=== PATIENT | male | born 1990 | race Caucasian/White ===

== ENCOUNTER 2019-05-13 21:21 | Emergency (ER) | payer MEDICAID ==
[~2019-05-13] VITALS: Ht 167.6 cm; Wt 67.0 kg
[2019-05-13 22:25] VITALS: BP 120/80
== END 2019-05-16 22:47 | disposition left against medical advice (07) ==
LOC: ER 21:21
DX: M79.604 Pain in right leg (principal); F15.10 Other stimulant abuse, uncomplicated
CPT/HCPCS: 99283